=== PATIENT | female | born 1970 | race Caucasian/White ===

== ENCOUNTER 2019-11-19 12:00 | Day surgery (SDC) | payer BC ==
--- NOTE | 2019-11-17 09:43 | HP ---
PREOPERATIVE HISTORY AND PHYSICAL: DATE OF SURGERY/ADMISSION: 11/19/19 [facility] DATE OF OFFICE VISIT/ENCOUNTER: 11/10/19 ATTENDING SURGEON: Tianna Rose MD ([place]) * (DICTATED BY KD PHELPS) PROCEDURE: Excision of mass right thumb. HISTORY OF PRESENT ILLNESS: This is a 49-year-old female who complains of a lump on her thumb that has been present for several weeks, it has gradually gotten bigger. 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 She denies any numbness or tingling associated with it. She would like to have the lump removed. PAST MEDICAL HISTORY: 1. GERD. 2. Diabetes. 3. Hypertension. 4. Asthma. 5. Hyperlipidemia. 6. History of breast cancer. PAST SURGICAL HISTORY: 1. . 2. Tubal ligation. 3. Incisional hernia repair. 4. Tonsillectomy, adenoidectomy. 5. Cholecystectomy. 6. Breast surgery on the left, a lumpectomy. MEDICATIONS: 1. Atorvastatin calcium 40 mg daily. 2. Calcium daily. 3. Cetirizine HCl 10 mg daily. 4. Famotidine 20 mg twice daily. 5. Fish oil 2 tabs daily. 6. Fluconazole 150 mg 1 tab, 3 days for 3 doses. 7. Gabapentin 300 mg twice a day. 8. Hydrochlorothiazide 25 mg daily. 9. Hydroxyzine HCl 25 mg 1 to 2 tabs q.6 hours p.r.n. anxiety. 10. Lidocaine HCl 3% applied to affected areas, 3 to 4 times daily. 11. Metformin HCl 500 mg daily. 12. Nasonex 50 mcg/act 2 sprays each nostril once daily p.r.n. 13. ProAir 1 to 2 inhalations every 4 hours p.r.n. 14. QVAR RediHaler 2 puffs twice a day. 15. Ramipril 5 mg daily. 16. Tamoxifen citrate 1 daily. 17. Trulicity inject 0.5 mL once weekly. 18. Vitamin D daily. 19. Zofran 4 mg q.4 to 6 hours p.r.n. nausea. 20. Aspirin 81 mg. ALLERGIES: DOXYCYCLINE, ERYTHROMYCIN cause nausea and hives. Also allergic to ADHESIVE TAPE and CHANTIX. FAMILY MEDICAL HISTORY: Cancer, diabetes, heart disease, hypertension. 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 She is a former smoker, she quit 03/29/19. Prior to that she smoked a half to 1 pack per day since age 14. She denies recreational drug use and does not drink alcohol. REVIEW OF SYSTEMS: Negative for general, cephalic, cardiovascular, respiratory , GI, , other musculoskeletal, integumentary, endocrine, neurologic, and hematologic symptoms. Infectious Disease: Negative for MRSA, hepatitis C, HIV. PHYSICAL EXAMINATION GENERAL: Well-developed, well-nourished 49-year-old female, in no acute distress. VITAL SIGNS: Height 5 feet 4 inches, weight 220 pounds, pulse rate 90, blood pressure 132/78. HEENT: Normocephalic, atraumatic. Pupils are equal, round, and reactive to light and accommodation. Throat is clear. NECK: Supple. No palpable lymph nodes. PULMONARY: Lungs are clear to auscultation bilaterally. No wheezes, rales, or rhonchi. CARDIOVASCULAR: Regular rate and rhythm. S1, S2. No murmurs, rubs, or gallops. No edema. ABDOMEN: Positive bowel sounds. Soft and nontender. NEUROLOGIC: Alert and oriented x3. Cranial nerves II through XII are intact. Sensation is intact to light touch. MUSCULOSKELETAL: On exam of her right hand, she has a palpable lump at the ulnar aspect of the MP joint of the thumb. It is tender to palpation. It does not limit her range of motion. There is no instability of the collateral ligament. DIAGNOSTIC STUDIES/LAB DATA: X-rays AP, lateral, and oblique of the right thumb show a calcified mass in the area of the palpable lump. IMPRESSION: Right thumb mass. PLAN: The patient is scheduled to undergo an excision mass right thumb with Dr. Rose on 11/19/19. She will return to the office 10 days postop for followup and suture removal. A prescription for tramadol was e-scribed to the patient's pharmacy for postoperative pain management. KD PHELPS [id number]/[facility] #: [id number] JONATHAN
[~2019-11-19 12:00] MED LIST: Buffered Lidocaine 1% SYRIN* 1 ML/SYRINGE INTRADERM ONE; Dexamethasone IV* 4 MG/ML 1 ML (4 MG) IV SLOW PU ONE; Dexamethasone IV* 4 MG/ML 1 ML (4 MG) ONE; Famotidine IV* 10 MG/ML 2 ML (20 mg) IV ONE; Famotidine IV* 10 MG/ML 2 ML (20 mg) ONE; Lactated Ringers 1000 ML Bag* 1,000 ML IV SCH; ceFAZolin 2 GM PREMIX in ORs 2 GM/50 ML BAG ONE
[2019-11-19] MEDS ORDERED: Lidocaine 1% INJ* 10 MG/ML 30 ML SDV ONE (13:12)
[2019-11-19] MEDS ORDERED: Propofol* 10 MG/ML 20 ML BTL ONE (14:05)
[2019-11-19] MEDS ORDERED: Ondansetron INJ* 2 MG/ML VIAL ONE (14:05)
[2019-11-19] MEDS ORDERED: Midazolam* 1 MG/ML 5 ML VIAL (5 MG) ONE (14:05)
[2019-11-19] MEDS ORDERED: Ketorolac INJ* 30 MG/ML 1 ML VIAL ONE (14:05)
[2019-11-19] MEDS ORDERED: Naloxone* 0.4 MG/ML 1 ML VIAL IV PRN (14:27)
[2019-11-19] MEDS ORDERED: Ondansetron INJ* 2 MG/ML VIAL IV PRN (14:27)
[2019-11-19] MEDS ORDERED: oxyCODONE/Acetamin 5/325 MG* TAB PO PRN (14:27)
[2019-11-19] MEDS ORDERED: DiMENhydriNATE IV* 50 MG/ML VIAL IV PUSH PRN (14:27)
[2019-11-19 15:16] VITALS: BP 140/86
--- NOTE | 2019-11-19 23:20 | OP ---
DATE OF OPERATION: 11/19/19 - [facility] DATE OF : 68 SURGEON: Tianna Rose MD PATTERN MARKING SUPERVISOR: KD Tubbs ANESTHESIA: Local MAC. PRE-OP DIAGNOSIS: Right thumb mass. POST-OP DIAGNOSIS: Right thumb mass. OPERATIVE PROCEDURE: Removal of right thumb mass. ESTIMATED BLOOD LOSS: Zero. TOURNIQUET TIME: About 20 minutes. INDICATIONS FOR PROCEDURE: Diamond is a 49-year-old woman who has a painful mass on the radial aspect of her thumb MP joint. She presents for removal. DESCRIPTION OF PROCEDURE: The patient was brought to the operating room, was given a sedation anesthetic and a local infiltration with 10 cc of 1% plain lidocaine. The skin of her right hand and forearm was prepped and draped in the usual sterile fashion. The hand and forearm were exsanguinated and tourniquet elevated to 250 mmHg. A Chevron incision was made centered over the mass and we dissected bluntly through the subcutaneous tissue down to the palpable mass. 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 It was removed in its entirety and sent for pathology. The wound was irrigated and skin edges were then reapproximated with 4-0 nylon suture. The wound was dressed with Xeroform , 4x4, Webril, and Davi wrap. The patient tolerated the procedure well and was brought to the recovery room in good condition. [id number]/[facility] #: [id number] MTDD
== END 2019-11-19 15:35 | disposition home or self-care (01) ==
LOC: OREAST 12:00
PROVIDERS: ATTEND Orthopaedic Surgery
DX: L94.2 Calcinosis cutis (principal); E11.8 Type 2 diabetes mellitus with unspecified complications; I10 Essential (primary) hypertension; J45.909 Unspecified asthma, uncomplicated; E78.5 Hyperlipidemia, unspecified; K21.9 Gastro-esophageal reflux disease without esophagitis; Z85.3 Personal history of malignant neoplasm of breast; Z87.891 Personal history of nicotine dependence; Z79.84 Long term (current) use of oral hypoglycemic drugs; Z79.82 Long term (current) use of aspirin; Z88.1 Allergy status to other antibiotic agents; Z88.8 Allergy status to other drugs, medicaments and biological substances; Z91.048 Other nonmedicinal substance allergy status
CPT/HCPCS: 88305; J0690; J1100; J1885; J2250; J2405; J2704